=== PATIENT | male | born 1940 | race Caucasian/White ===

== ENCOUNTER → 2017-08-01 | Outpatient (CLI) | payer MEDICARE, OTHER ==
[~2017-08-01] MED LIST: ALL DAY ALLERGY10 M1 PO; AMLO5 PO; ASPI81CH PO; ASPI81EC PO; ASTELIN SPRAY INH; AZEL137S NS; B50 COMPLEX PO; CALC1.25T PO; CALCA500CH PO; CALCIUM CARBONATE PO; CALCIUM PO; CETI10 PO; CHLO25B PO; ESOM20 PO; Flunisolide25 ML NS; HEALTHY HEART1 EACH PO; HYDACE10B PO; HYDACE5325; HYDCHL25 PO; IRBE150 PO; IRON PO; IRON150C PO; LAVAP17G PO; LISI20 PO; LOSA25 PO; MAGOXI400 PO; METF500 PO; NEXIUM PO; OLME20 PO; OMEP40CA12 PO; OMEPRAZOLE MAGN20 MG PO; OSTERA TABLET1 EACH PO; RAMI5 PO; SIMV10 PO; SIMV20 PO; SIMV40 PO; STOOL SOFTENER50 MG PO; Simvastatin40 MG PO; TRIPLE FLEX CA1 EACH PO; TRIPLE FLEX PO; TYLENOL ARTHRITIS; TYLENOL ARTHRITIS PO; VITAMIN B PO; VITAMIN D PO; VITB PO; ZINC PO; ZINC15 PO; ZYRTEC10 M2 PO; [UNRECOGNIZED DRUG - OTHER] PO; [UNRECOGNIZED DRUG - REMARK] PO
== END | disposition home or self-care (01) ==
LOC: PLD 11:21 → LAB SHORT 11:21
DX: L85.8 Other specified epidermal thickening (principal)
CPT/HCPCS: 88305

== ENCOUNTER 2018-10-04 07:02 | Day surgery (SDC) | payer MEDICARE, OTHER ==
[~2018-10-04] VITALS: Ht 172.7 cm; Wt 94.6 kg
[~2018-10-04 07:02] MED LIST changes: +ASTELIN NASAL SPRAY; +PANT40 PO
--- NOTE | 2018-10-04 07:45 | NUR ---
Patient states colon prep results clear. History, Chart, Medications and Allergies reviewed before start of procedure. Lungs clear T/O to Auscultation. Patient confirms NPO status and agrees with scheduled surgery.
--- NOTE | 2018-10-04 08:38 | NUR ---
10/04/18 0838 Chin Brito History, Chart, Medications and Allergies reviewed before start of procedure.MONITOR INTACT WITH CONTINUOUS PULSE OXIMETRY AND INTERMITTENT BP.3-LEAD EKG REVIEWED WITH PHYSICIAN PRIOR TO START OF PROCEDURE.O2 VIA N/C INTACT THROUGHOUT SEDATION/PROCEDURE. Patient confirms NPO status and agrees with scheduled surgery.PATIENT DETERMINED TO BE ASA APPROPRIATE FOR PROPOFOL SEDATION PRIOR TO START OF PROCEDURE BY DR. RECINOS.
--- NOTE | 2018-10-04 09:14 | NUR ---
Discharge instructions reviewed with patient. Patient verbalizes understanding. Copy given to patient to take home. handouts provided. Patient States Post-Procedure ride home has been arranged.
--- NOTE | 2018-10-04 09:17 | NUR ---
Discharged via wheelchair to private car for ride home.
== END 2018-10-04 09:18 | disposition home or self-care (01) ==
LOC: ORSCMMR 07:02 → ORD 08:00 → ORSCMMR 08:00
PROVIDERS: Internal Medicine Gastroenterology
PROC: 0DB68ZX Excision of Stomach, Via Natural or Artificial Opening Endoscopic, Diagnostic (ICD-10-PCS; principal; 2018-10-04 08:00)
PROC: 0DBN8ZX Excision of Sigmoid Colon, Via Natural or Artificial Opening Endoscopic, Diagnostic (ICD-10-PCS; principal; 2018-10-04 08:00)
PROC: 0DBL8ZX Excision of Transverse Colon, Via Natural or Artificial Opening Endoscopic, Diagnostic (ICD-10-PCS; principal; 2018-10-04 08:00)
PROC: 0DB58ZX Excision of Esophagus, Via Natural or Artificial Opening Endoscopic, Diagnostic (ICD-10-PCS; principal; 2018-10-04 08:00)
PROC: 0DBP8ZX Excision of Rectum, Via Natural or Artificial Opening Endoscopic, Diagnostic (ICD-10-PCS; principal; 2018-10-04 08:00)
PROC: 0DB98ZX Excision of Duodenum, Via Natural or Artificial Opening Endoscopic, Diagnostic (ICD-10-PCS; principal; 2018-10-04 08:00)
DX: K21.9 Gastro-esophageal reflux disease without esophagitis (principal); K22.70 Barrett's esophagus without dysplasia; Z12.11 Encounter for screening for malignant neoplasm of colon; Z86.010 Personal history of colon polyps; D12.3 Benign neoplasm of transverse colon; K63.5 Polyp of colon; D12.8 Benign neoplasm of rectum; E11.9 Type 2 diabetes mellitus without complications; I10 Essential (primary) hypertension; E78.00 Pure hypercholesterolemia, unspecified; Z79.899 Other long term (current) drug therapy; E66.9 Obesity, unspecified; Z68.33 Body mass index [BMI] 33.0-33.9, adult
CPT/HCPCS: 82947; 88305; 88342; J2704; J7120

== ENCOUNTER 2020-01-07 06:05 | Day surgery (SDC) | payer MEDICARE, OTHER ==
[~2020-01-07] VITALS: Ht 172.7 cm; Wt 99.0 kg
[~2020-01-07 06:05] MED LIST changes: +Aspir 8181 MG PO
[2020-01-07] MEDS ORDERED: Benicar40 MG PO (06:31)
--- NOTE | 2020-01-07 11:08 | NUR ---
SALINE LOCK REMOVED. CLOTH DOT PLACED OVER RIGHT RADIAL SITE. DISCHARGE INSTRUCTIONS GONE OVER WITH PT AND , BOTH VERBALIZE UNDERSTANDING. PT RIGHT ARM PLACED IN A SLING. PT DISCHARGED PER W/C TO PRIVATE VEHICLE.
== END 2020-01-07 10:55 | disposition home or self-care (01) ==
LOC: MHTC 06:05
PROC: B201YZZ Plain Radiography of Multiple Coronary Arteries using Other Contrast (ICD-10-PCS; principal; 2020-01-07)
PROC: 4A023N7 Measurement of Cardiac Sampling and Pressure, Left Heart, Percutaneous Approach (ICD-10-PCS; principal; 2020-01-07)
DX: I35.0 Nonrheumatic aortic (valve) stenosis (principal); I25.10 Atherosclerotic heart disease of native coronary artery without angina pectoris; E11.9 Type 2 diabetes mellitus without complications; E78.5 Hyperlipidemia, unspecified; I11.0 Hypertensive heart disease with heart failure; I50.9 Heart failure, unspecified; E66.3 Overweight; I77.811 Abdominal aortic ectasia; Z87.891 Personal history of nicotine dependence; Z88.8 Allergy status to other drugs, medicaments and biological substances; Z79.82 Long term (current) use of aspirin; Z79.84 Long term (current) use of oral hypoglycemic drugs; Z79.899 Other long term (current) drug therapy; Z68.33 Body mass index [BMI] 33.0-33.9, adult
CPT/HCPCS: 93454; 93458; 99152; 99153; C1769; C1894; J1644; J2250; J3010; J7030; J7050; Q9967

== ENCOUNTER 2023-05-23 11:55 | Day surgery (SDC) | payer OTHER ==
[~2023-05-23] VITALS: Ht 172.7 cm; Wt 90.6 kg
[~2023-05-23 11:55] MED LIST changes: +ACETAMINOPHEN500 M2 PO; -ALL DAY ALLERGY10 M1 PO; +B-COMPLEX WITH1 EAC2 PO; +Benicar40 MG PO; +CILO100 PO; +DOCU100 PO; +FEROSUL325 M1 PO; +METO25ER PO; +MULTIPLE VITAM1 EACH PO; +TUMS500 MG PO; +XARELTO2.5 M1
--- NOTE | 2023-05-23 12:26 | NUR ---
05/23/23 1226 Savanah Hodges RING REMOVED PER LUDY
[2023-05-23 12:34] VITALS: BP 167/63
--- NOTE | 2023-05-23 13:53 | NUR ---
05/23/23 1353 Mariia Landa BLOCK COMPLETE IN OR BY DR SIDHU. PT TOLERATED WELL.
== END 2023-05-23 15:10 | disposition home or self-care (01) ==
LOC: ORSCSDS 11:55
PROVIDERS: Orthopaedic Surgery
PROC: 01N50ZZ Release Median Nerve, Open Approach (ICD-10-PCS; principal; 2023-05-23 13:30)
DX: G56.03 Carpal tunnel syndrome, bilateral upper limbs (principal); G47.33 Obstructive sleep apnea (adult) (pediatric); Z79.899 Other long term (current) drug therapy; Z85.46 Personal history of malignant neoplasm of prostate; Z96.653 Presence of artificial knee joint, bilateral; E11.22 Type 2 diabetes mellitus with diabetic chronic kidney disease; I12.9 Hypertensive chronic kidney disease with stage 1 through stage 4 chronic kidney disease, or unspecified chronic kidney disease; N18.9 Chronic kidney disease, unspecified; Z79.84 Long term (current) use of oral hypoglycemic drugs; E78.5 Hyperlipidemia, unspecified; Z79.01 Long term (current) use of anticoagulants; Z79.82 Long term (current) use of aspirin; E66.9 Obesity, unspecified; Z68.30 Body mass index [BMI] 30.0-30.9, adult
CPT/HCPCS: 82947; J0690; J2250; J3010; J7120